=== PATIENT | female | born 1980 | race Caucasian/White ===

== ENCOUNTER 2021-08-30 14:09 | Emergency (ER) | payer MEDICAID ==
[~2021-08-30] VITALS: Ht 160 cm; Wt 77.1 kg
[2021-08-30 14:45] VITALS: BP_SYST 135
--- NOTE | 2021-08-30 15:00 | NUR ---
Patient to ER bed tent1 to gown for evaluation. Side rails up. Assumed care.
--- NOTE | 2021-08-30 15:05 | NUR ---
Betty and Inf A&B collected and sent
--- NOTE | 2021-08-30 15:15 | NUR ---
ER at bedside examining patient.
--- NOTE | 2021-08-30 15:20 | NUR ---
Pt informed on COVID + result.
[2021-08-30 16:00] VITALS: BP_SYST 135
--- NOTE | 2021-08-30 16:00 | NUR ---
Patient given written and verbal discharge instructions and verbalizes understanding. ER MD discussed with patient the results and treatment provided. Patient in stable condition. ID arm band removed. Rx of promethazine syrup given. Patient educated on pain management and to follow up with PMD. Pain Scale 2. Opportunity for questions provided and answered. Medication side effect fact sheet provided.
[2021-08-30] MEDS ORDERED: PHEDM120 PO (16:04)
== END 2021-08-30 16:00 | disposition home or self-care (01) ==
LOC: SED 14:09
DX: U07.1 COVID-19 (principal)
CPT/HCPCS: 36415; 99283

== ENCOUNTER 2021-12-08 11:25 | Emergency (ER) | payer MEDICAID ==
[~2021-12-08] VITALS: Ht 160 cm; Wt 81.6 kg
[~2021-12-08 11:25] MED LIST: PHEDM120 PO
[2021-12-08 11:30] VITALS: BP_SYST 133
[2021-12-08 12:09] LABS: BASOPHILS % (AUTO) 0.5 % (0.0-2.0); EOSINOPHILS # (AUTO) 0.1 K/uL (0.0-0.4); EOSINOPHILS % (AUTO) 0.9 % (0.0-4.0); HEMATOCRIT 29.9 % (36-48); HEMOGLOBIN 9.5 g/dL (12.0-16.0); LYMPHOCYTES # (AUTO) 2.3 K/uL (1.0-5.5); MEAN CORPUSCULAR HEMOGLOBIN 19 pg (27-31); MEAN CORPUSCULAR HGB CONC 32 % (32-36); MEAN CORPUSCULAR VOLUME 59 fL (79.0-98.0); MONOCYTES # (AUTO) 0.5 K/uL (0.0-1.0); MONOCYTES % (AUTO) 6.2 % (1.7-9.3); NEUTROPHILS # (AUTO) 4.8 K/uL (1.8-7.7); NEUTROPHILS % (AUTO) 62.4 % (40.0-70.0); PLATELET COUNT (AUTO) 298 K/uL (130-430); RED BLOOD CELL COUNT(AUTO) 5.05 MIL/uL (4.2-6.2); RED CELL DISTRIBUTION WIDTH 19.1 % (9.0-15.0); WHITE BLOOD COUNT (AUTO) 7.6 K/uL (4.8-10.8)
[2021-12-08 12:40] LABS: CALCIUM 8.7 mg/dL (8.4-11.0)
[2021-12-08 12:41] LABS: ALBUMIN 3.4 g/dL (3.4-4.8); TOTAL BILIRUBIN 0.3 mg/dL (0.0-1.0)
[2021-12-08 12:49] LABS: CREATININE 0.88 mg/dL (0.55-1.30)
[2021-12-08] MEDS ORDERED: DIF100 PO (13:53)
[2021-12-08] MEDS ORDERED: METF-379 PO (13:54)
[2021-12-08] MEDS ORDERED: NACL 0.9% 1,000 ML IV ONE (14:00)
[2021-12-08] MEDS ORDERED: FLUCONAZOLE 100 MG TABLET (DIFLUCAN) PO SCH (16:15)
[2021-12-08 16:27] VITALS: BP_SYST 107
== END 2021-12-08 16:28 | disposition home or self-care (01) ==
LOC: SED 11:25
DX: B37.3 Candidiasis of vulva and vagina (principal); E11.9 Type 2 diabetes mellitus without complications; R10.30 Lower abdominal pain, unspecified; Z79.899 Other long term (current) drug therapy
CPT/HCPCS: 99284; 96360; 76856; 80053; 82009; 84703; 85025; 36415; 81002; 83036; J7030

== ENCOUNTER → 2022-03-07 | Emergency (ER) | payer MEDICAID ==
[~2022-03-07] VITALS: Ht 144.8 cm; Wt 77.1 kg
[~2022-03-07] MED LIST changes: +DIF100 PO; +HYDR120S7 PO; +METF-379 PO; +NEO/5DRO3 OP; +PRED50TA PO; +ZIT250 PO
[2022-03-07 08:55] VITALS: BP_SYST 119
--- NOTE | 2022-03-07 08:55 | NUR ---
Pt bib self to ER from home. CC chest wall pain related to cough and congestion. Pt states onset of symptoms 2 weeks ago. Productive phlegm, lungs clear to auscultation. Pt complains of pain to chest upon inspiration. aaox3, skin intact, resp. even and unlabored. No Past medical hx. pt not vaccinated for Covid.
--- NOTE | 2022-03-07 09:05 | NUR ---
Specimen collected from bilateral nares sent to lab for evaluation.
--- NOTE | 2022-03-07 09:05 | NUR ---
ER at bedside examining patient.
[2022-03-07 10:30] VITALS: BP_SYST 119
--- NOTE | 2022-03-07 10:30 | NUR ---
Patient given written and verbal discharge instructions and verbalizes understanding. ER MD discussed with patient the results and treatment provided. Patient in stable condition. ID arm band removed. Opportunity for questions provided and answered. Medication side effect fact sheet provided.
== END | disposition home or self-care (01) ==
LOC: SED 08:40
DX: J45.909 Unspecified asthma, uncomplicated (principal); J06.9 Acute upper respiratory infection, unspecified; R05.9 Cough, unspecified; R09.81 Nasal congestion; R07.81 Pleurodynia; Z79.899 Other long term (current) drug therapy; Z20.822 Contact with and (suspected) exposure to COVID-19
CPT/HCPCS: 36415; 71045; 99284

== ENCOUNTER 2022-10-11 15:13 | Emergency (ER) | payer MEDICAID ==
[~2022-10-11] VITALS: Ht 154.9 cm; Wt 81.6 kg
[2022-10-11 15:13] VITALS: BP_SYST 125
--- NOTE | 2022-10-11 15:14 | NUR ---
DOCTOR AT BEDSIDE EXAMINING PATIENT
--- NOTE | 2022-10-11 15:20 | NUR ---
PATIENT BIB SPOUSE C/O DIARRHEA X 1 WEEK. ALSO C/O EPIGASTRIC PAIN 12/31. DENIES N/V. MED HX OF DM. NO MEDS, NKA.
[2022-10-11] MEDS ORDERED: IBUP-1971 PO (16:00)
[2022-10-11] MEDS ORDERED: KETOROLAC TROMETHAMINE 60 MG/2 ML VIAL IM ONE (16:00)
[2022-10-11] MEDS ORDERED: CIPR500T5 PO (16:00)
[2022-10-11 16:02] LABS: BILIRUBIN,URINE NEGATIVE (NEGATIVE); CLARITY/URINE SL CLOUDY (CLEAR); COLOR,URINE YELLOW (YELLOW); GLUCOSE,URINE NEGATIVE (NEGATIVE); KETONES,URINE NEGATIVE (NEGATIVE); LEUKOCYTE ESTERASE ,URINE NEGATIVE (NEGATIVE); NITRITE, URINE NEGATIVE (NEGATIVE); PROTEIN URINE NEGATIVE (NEGATIVE); UROBILINOGEN,URINE 0.2 (0.2-1.0)
--- NOTE | 2022-10-11 16:15 | NUR ---
PATIENT GIVEN MEDICATION PER MD ORDERS
[2022-10-11 16:23] LABS: BLOOD, URINE TRACE (NEGATIVE)
[2022-10-11 16:54] LABS: WBC,URINE 0-3 /HPF (0-3)
[2022-10-11 16:55] LABS: BACTERIA,URINE FEW /HPF (None Seen)
[2022-10-11 17:41] VITALS: BP_SYST 120
--- NOTE | 2022-10-11 17:41 | NUR ---
Patient given written and verbal discharge instructions and verbalizes understanding. ER MD discussed with patient the results and treatment provided. Patient in stable condition. ID arm band removed. Rx of CIPRO, MOTRIN given. Patient educated on pain management and to follow up with PMD. Pain Scale 5/10. Opportunity for questions provided and answered. Medication side effect fact sheet provided.
== END 2022-10-11 17:41 | disposition home or self-care (01) ==
LOC: SED 15:13
DX: R19.7 Diarrhea, unspecified (principal); R10.13 Epigastric pain; R11.0 Nausea; E11.9 Type 2 diabetes mellitus without complications; Z79.899 Other long term (current) drug therapy
CPT/HCPCS: 99283; 81000; 81025; 96372; J1885